=== PATIENT | female | born 1945 | race African-American/Black ===

== ENCOUNTER 2017-04-10 21:37 | Emergency (ER) | payer OTHER ==
[~2017-04-10] VITALS: Ht 182.9 cm; Wt 114.5 kg
[~2017-04-10 21:37] MED LIST: ALBU8HFA IH; ASPI-1182 PO; CARV12 PO; CLOP75 PO; DSS100 PO; ESOM20CA31 PO; FLUT16H NASAL; HYDR-4069 PO; IBUP-2077 PO; IPRAHFA IH; ISOS30TA6 PO; LEVO75 PO; NITR.4 SL; POTA20TA11 PO; RANO500T3 PO; SIMV-261 PO; SPIR25 PO; TORS20 PO; [UNRECOGNIZED DRUG - CODE] TD
[2017-04-10 22:07] LABS: EOSINOPHILS % (AUTO) 1.2 % (1.0-6.0); HEMATOCRIT 37.6 % (36-46); HEMOGLOBIN 12.2 g/dL (12.0-16.0); LYMPHOCYTES % (AUTO) 20.1 % (22.0-44.0); MEAN CORPUSCULAR HEMOGLOBIN 26.4 pg (26.0-34.0); MEAN CORPUSCULAR HGB CONC 32.6 G/dL (31.0-37.0); MEAN CORPUSCULAR VOLUME 81 fL (80-100); MONOCYTES # (AUTO) 0.7 K/uL (0.1-1.0); MONOCYTES % (AUTO) 6.9 % (2.0-9.0); NEUTROPHILS % (AUTO) 71.8 % (40.0-70.0); PLATELET COUNT (AUTO) 213 K/uL (150-450); RED BLOOD CELL COUNT(AUTO) 4.64 MIL/uL (4.00-5.20); RED CELL DISTRIBUTION WIDTH 15.3 % (11.5-14.5); WHITE BLOOD COUNT (AUTO) 9.7 K/uL (4.5-11.0)
[2017-04-10 22:18] LABS: APPEARANCE,URINE CLOUDY (CLEAR); GLUCOSE, URINE (UA) NEGATIVE (NEGATIVE); KETONES,URINE TRACE mg/dL (NEGATIVE); LEUKOCYTE ESTERASE ,URINE LARGE (NEGATIVE); OCCULT BLOOD,URINE NEGATIVE (NEGATIVE); PROTEIN,URINE POS 1+ (NEGATIVE)
[2017-04-10 22:19] LABS: ADD UA MICROSCOPIC YES
[2017-04-10 22:23] LABS: RBC,URINE 0-2 /HPF (0-2); SQUAMOUS EPITHELIAL CELL,UR Many /LPF (None Seen); WBC,URINE 26-50 /HPF (0-5)
[2017-04-10 22:35] LABS: CALCIUM, TOTAL 9.1 mg/dL (8.8-10.5); CREATININE 2.25 mg/dL (0.60-1.30); POTASSIUM 3.2 mmol/L (3.5-5.1)
[2017-04-10 22:42] LABS: BILIRUBIN,TOTAL 0.4 mg/dL (0.1-1.0); TOTAL PROTEIN, SERUM 7.9 g/dL (6.4-8.2)
[2017-04-10] MEDS ORDERED: PROCHLORPERAZINE EDISYLATE 5 MG/ML 2 ML VIAL IVP ONE (23:15)
[2017-04-10] MEDS ORDERED: MORPHINE SULFATE 4 MG/ML SYRINGE IVP ONE (23:15)
[2017-04-10 23:58] LABS: MAGNESIUM 2.1 mg/dL (1.80-2.40)
[2017-04-10 23:59] LABS: THYROID STIMULATING HORMONE 4.23 uIU/mL (0.36-3.74)
[2017-04-11 01:51] VITALS: BP 139/70
== END 2017-04-11 02:20 | disposition home or self-care (01) ==
LOC: EMS 21:40
DX: K59.00 Constipation, unspecified (principal); N39.0 Urinary tract infection, site not specified; N28.9 Disorder of kidney and ureter, unspecified; I10 Essential (primary) hypertension; E78.00 Pure hypercholesterolemia, unspecified; E03.9 Hypothyroidism, unspecified; Z88.0 Allergy status to penicillin; Z88.5 Allergy status to narcotic agent
CPT/HCPCS: 36415; 74010; 80053; 81001; 82652; 83690; 83735; 83880; 84439; 84443; 84481; 85025; 87077; 87086; 87147; 96374; 96375; 99285; J0780; J2270

== ENCOUNTER 2019-07-28 06:15 | Day surgery (SDC) | payer MEDICARE, OTHER ==
[~2019-07-28] VITALS: Ht 182.9 cm; Wt 97.7 kg
[~2019-07-28 06:15] MED LIST changes: +ASPI-1111 PO; -ASPI-1182 PO; -CLOP75 PO; +CLOP75TA3 PO; -NITR.4 SL; +NITR0.4T52 SL; +SODIUM CHLORIDE 0.9% 1,000 ML ONE
[2019-07-28] MEDS ORDERED: BENZOCAINE 20% 50 MCG/SPRAY 57 GM TP ONE (06:16)
[2019-07-28] MEDS ORDERED: LIDOCAINE 2% 30 ML JELLY TP ONE (06:16)
[2019-07-28] MEDS ORDERED: LIDOCAINE 4% 50 ML SOLUTION TP ONE (06:16)
[2019-07-28] MEDS ORDERED: ALBUTEROL SULFATE 2.5 MG/0.5 ML NEB SOLUTION NEB ONE (06:16)
[2019-07-28] MEDS ORDERED: SODIUM CHLORIDE 0.9% 1,000 ML IV ONE (06:30)
[2019-07-28] MEDS ORDERED: SENN-160 PO (07:21)
[2019-07-28] MEDS ORDERED: FAMO20 PO (07:21)
[2019-07-28] MEDS ORDERED: FURO40 PO (07:21)
[2019-07-28] MEDS ORDERED: ATOR40TA28 PO (07:21)
[2019-07-28] MEDS ORDERED: ALLO100T PO (07:21)
[2019-07-28] MEDS ORDERED: APIX2.5T PO (07:21)
[2019-07-28] MEDS ORDERED: LORA10TA7 PO (07:21)
[2019-07-28] MEDS ORDERED: FLUT1BLS IH (07:21)
[2019-07-28] MEDS ORDERED: MONT10TA21 PO (07:21)
[2019-07-28] MEDS ORDERED: CARV3 PO (07:21)
[2019-07-28] MEDS ORDERED: MIDAZOLAM HCL 2 MG/2 ML VIAL ONE (08:09)
[2019-07-28] MEDS ORDERED: FentaNYL CITRATE-PF 100 MCG/2 ML VIAL ONE (08:09)
[2019-07-28] MEDS ORDERED: MethylPREDNISolone SOD SUCC 125 MG/2 ML VIAL ONE (08:52)
[2019-07-28] MEDS ORDERED: MethylPREDNISolone SOD SUCC 125 MG/2 ML VIAL IVP ONE (09:15)
[2019-07-28] MEDS ORDERED: OXYGEN THERAPY IH SCH (20:00)
== END 2019-07-28 11:35 | disposition home or self-care (01) ==
LOC: SURGERY 06:15
PROVIDERS: ATTEND Internal Medicine Critical Care Medicine
DX: R05 Cough (principal); R91.1 Solitary pulmonary nodule; J34.89 Other specified disorders of nose and nasal sinuses; J98.8 Other specified respiratory disorders; J38.4 Edema of larynx; B37.0 Candidal stomatitis; I11.0 Hypertensive heart disease with heart failure; I50.9 Heart failure, unspecified; Z79.899 Other long term (current) drug therapy; R19.09 Other intra-abdominal and pelvic swelling, mass and lump
CPT/HCPCS: 31623; 31624; 71045; 87015; 87070; 87077; 87101; 87205; 87206; 87220; 88108; 88184; 88185; 88312; 93005; J2250; J2930; J3010; J7030